=== PATIENT | female | born 1975 | race American Indian/Alaskan Native ===

== ENCOUNTER 2020-01-05 04:17 | Inpatient (IN) | payer OTHER ==
[2020-01-05] MEDS ORDERED: SODIUM CHLORIDE 0.9% 1000 ML 1,000 ML IV ONE ×4 (04:33→12:51)
[2020-01-05] MEDS ORDERED: LIP THERAPY VASELINE TP PRN (04:35)
[2020-01-05] MEDS ORDERED: MINERAL OIL/PETROLATUM, WHITE OPHTH OINT 3.5 GM OU PRN (04:35)
[2020-01-05] MEDS ORDERED: SODIUM CHLORIDE 0.9% 1000 ML IV SOLN IV ONE (04:36)
--- NOTE | 2020-01-05 04:38 | Emergency Department Report ---
ED CPR HPI - General Stated Complaint: CARDIAC ARREST Time Seen by Provider: 01/05/20 04:17 Source: EMS Mode of arrival: Stretcher Limitations: Altered Mental Status, Physical Limitation - History of Present Illness Initial Comments: Patient is a 44-year-old female that presents emergency room for cardiac arrest. Patient brought in by EMS. EMS report received. EMS states that the patient's last known well time was 1130. Patient was found unresponsive at home and the family called EMS. EMS states when they arrived patient was unresponsive, with no pulse and no respiratory effort. EMS states that they intubated patient with a Payam tube and gave the patient multiple rounds of epi. EMS states that the patient also went into V. fib and the patient was shocked and placed on amiodarone push and amiodarone drip. Patient had spontaneous return of circulation in the field. Upon arrival the patient is sinus bradycardia. MD Complaint: found unresponsive - Related Data Allergies Allergy/AdvReac Type Severity Reaction Status Date / Time Unable to Assess Allergy Verified 01/05/20 06:22 ED Review of Systems ROS: Stated complaint: CARDIAC ARREST Other details as noted in HPI Comment: Unobtainable due to pts medical conditions ED Past Medical Hx - Past Medical History Previous Medical History?: Yes Hx Hypertension: Yes Hx Diabetes: Yes - Surgical History Past Surgical History?: No - Family History Family history: no significant - Social History Smoking Status: Unknown if ever smoked Substance Use Type: None ED Physical Exam - General General appearance: other - Head Head exam: Present: atraumatic (Patient intubated with a Payam tube.), normocephalic - Eye Eye exam: Present: normal appearance - ENT ENT exam: Present: mucous membranes dry - Neck Neck exam: Present: normal inspection - Respiratory Respiratory exam: Present: decreased breath sounds (Patient intubated) - Cardiovascular Cardiovascular Exam: Present: regular rate, normal rhythm. Absent: systolic murmur, diastolic murmur, rubs, gallop - GI/Abdominal GI/Abdominal exam: Present: soft, normal bowel sounds. Absent: distended, tenderness, guarding - Rectal Rectal exam: Present: deferred - Extremities Exam Extremities exam: Present: normal inspection - Back Exam Back exam: Present: normal inspection - Neurological Exam Neurological exam: Present: altered - Skin Skin exam: Present: warm, dry, intact, normal color. Absent: rash ED Course Vital Signs 01/05/20 01/05/20 01/05/20 04:18 04:30 05:00 Pulse Rate 70 71 Respiratory 19 24 Rate Blood Pressure 112/80 125/65 85/17 Blood Pressure 85/17 [Right] O2 Sat by Pulse 97 Oximetry 01/05/20 01/05/20 01/05/20 05:08 05:16 06:16 Pulse Rate 85 67 82 Respiratory 24 24 Rate Blood Pressure 196/61 74/29 91/37 Blood Pressure [Right] O2 Sat by Pulse 100 100 100 Oximetry - Reevaluation(s) Reevaluation #1: Patient arrived via EMS. Patient has a pulse. Patient placed on a rn cardiac. Patient currently has a Payam tube in place. Patient came to removed and an ET tube placed. See procedure note. NG placed, Minor placed. 01/05/20 04:17 Reevaluation #2: Patient went into a cardiac arrest. 01/05/20 04:40 Patient had a spontaneous return of circulation after epi. Patient replaced on Levophed drip. See code note. 01/05/20 04:42 Reevaluation #3: Triple-lumen central line placed in the right femoral vein without difficulty. See procedure note. Patient's ET tube adjusted based on x-ray findings. X-ray findings recommend a extraction of 3 to 4 cm. A new x-ray taken. 01/05/20 05:27 Reevaluation #4: Patient noted to be in DKA and was placed on a DKA protocol. Patient will be given fluids and insulin drip. 01/05/20 06:10 - Consultations Consultation #1: Hospitalist consulted for admission. Hospitalist to admit patient. 01/05/20 06:50 - Central Line Placement Right Femoral Consent Obtained: emergent situation Time Out Performed: Yes Patient Placed on Monitor/Pulse Ox: Yes MD Prep: mask, gown, gloves Central Line Prep: Chlorhexidine scrub, sterile drapes applied Ultrasound Used for Placement: Yes Central Line Lumen Inserted: triple Bloods Obtained for Lab: No Central Line Position: good blood return, all ports aspirated, flus, sutured in place with 2-0 Dressing Applied: Tegaderm Patient Tolerated Procedure: well, no complications Complications: none Additional Comments: Right femoral line placed with a Seldinger technique without difficulties. - Intubation Time Out Performed: Yes Sedative: none Laryngoscope: fiberoptic video scope Size: 3 Assist Device Used: fiberoptic device ET Tube Size: 7.5 Tube Secured Depth (cm): 22 Tube Secured Location: teeth Tube Placement Confirmation: visualized tube passing t, equal breath sounds bilat, no breath sounds over epi, confirmation by capnometr Patient Tolerated Procedure: well, no complications Intubation Complications: none ED Medical Decision Making - Lab Data Result diagrams: 01/05/20 04:50 01/05/20 04:50 - EKG Data -: EKG Interpreted by Me EKG shows normal: sinus rhythm, axis, intervals, QRS complexes, ST-T waves Rate: normal - Radiology Data Radiology results: report reviewed CHEST 1 VIEW INDICATION / CLINICAL INFORMATION: cardiac arest. et tube. COMPARISON: None available. FINDINGS: SUPPORT DEVICES: Tip of ET tube is in the proximal right mainstem bronchus. Please withdraw 3-4 cm. HEART / MEDIASTINUM: No significant abnormality. LUNGS / PLEURA: There is suboptimal inspiration. Mild to moderate interstitial pulmonary edema is noted. More focal area of consolidation is present in the left lung base, retrocardiac region which could represent pneumonia or more for focal pulmonary edema. This area may be better evaluated after endotracheal tube reposition. No large pleural effusion. No pneumothorax. ADDITIONAL FINDINGS: No significant additional findings. IMPRESSION: 1. ET tube tip is within the right mainstem bronchus. Please withdraw 3-4 cm. 2. Mild to moderate interstitial pulmonary edema. 3. Focal area of consolidation is noted in the left lung base, concerning for possible pneumonia - Medical Decision Making Patient is a 44-year-old female that presents emergency room for a cardiac arrest. Patient last known well time 11:30 PM. Patient brought in by EMS. Patient had spontaneous return of circulation just prior to arrival. Report received from EMS. Patient had a Payam tube placed by EMS and the patient was extubated and reintubated with an standard ET tube. See procedure note. Patient went back into a cardiac arrest while in the ER but had a spontaneous return of circulation. Patient was then placed on a Levophed drip. Patient had a central line placed, see procedure note. Patient's chest x-ray shows a po ssible pneumonia. Patient's labs are consistent with DKA. Patient was placed on a DKA protocol to include insulin drip and fluids. Patient admitted to the ICU. Patient admitted to the hospitalist service. - Differential Diagnosis Cardiac arrest, DKA, overdose, [place] Critical Care Time: Yes Critical care time in (mins) excluding proc time.: 45 Critical care attestation.: If time is entered above; I have spent that time in minutes in the direct care of this critically ill patient, excluding procedure time. Critical Care Time: 45 minutes ED Disposition Clinical Impression: Cardiac arrest, Lactic acid acidosis DKA (diabetic ketoacidoses) Qualifiers: Diabetes mellitus type: other specified (including SD) Diabetes mellitus complication detail: with coma Qualified Code(s): E13.11 - Other specified diabetes mellitus with ketoacidosis with coma Pneumonia Qualifiers: Pneumonia type: due to unspecified organism Laterality: unspecified laterality Lung location: unspecified part of lung Qualified Code(s): J18.9 - Pneumonia, unspecified organism Disposition: 09 OP ADMIT IP TO THIS HOSP Is pt being admited?: Yes Does the pt Need Aspirin: No Condition: Critical Instructions: Bacterial Pneumonia (ED) Referrals: PRIMARY CARE, [Primary Care Provider] - 3-5 Days Time of Disposition: 06:52
[2020-01-05] MEDS: NORepinephrine/NS 4 MG-250 ML 4 MG/250 ML BAG IV SCH ×3 (04:40→12:16)
[2020-01-05 05:30] LABS: Hematocrit 29.7 % (30.3-42.9); Hemoglobin 9.4 gm/dl (10.1-14.3); Mean Corpuscular HGB Conc 32 % (30-34); Mean Corpuscular Volume 89 fl (79-97); Platelet Count 165 K/mm3 (140-440); Red Blood Count 3.35 M/mm3 (3.65-5.03); Red Cell Distribution Width 13.8 % (13.2-15.2)
[2020-01-05 05:34] LABS: Bilirubin,Urine NEG (Negative); Blood,Urine MOD (Negative); Color,Urine Yellow (Yellow); Hyaline Casts,Urine 4 /LPF; Mucus,Urine FEW /HPF; Urobilinogen,Urine < 2.0 mg/dL (<2.0)
--- NOTE | 2020-01-05 05:34 | XRay Report ---
CHEST 1 VIEW INDICATION / CLINICAL INFORMATION: cardiac arest. et tube. COMPARISON: None available. FINDINGS: SUPPORT DEVICES: Tip of ET tube is in the proximal right mainstem bronchus. Please withdraw 3-4 cm. HEART / MEDIASTINUM: No significant abnormality. LUNGS / PLEURA: There is suboptimal inspiration. Mild to moderate interstitial pulmonary edema is not ed. More focal area of consolidation is present in the left lung base, retrocardiac region which coul d represent pneumonia or more for focal pulmonary edema. This area may be better evaluated after endo tracheal tube reposition. No large pleural effusion. No pneumothorax. ADDITIONAL FINDINGS: No significant additional findings. IMPRESSION: 1. ET tube tip is within the right mainstem bronchus. Please withdraw 3-4 cm. 2. Mild to moderate interstitial pulmonary edema. 3. Focal area of consolidation is noted in the left lung base, concerning for possible pneumonia Signer Name: Tiffanie Fulton MD Signed: 01/05/2020 5:30 AM Workstation Name: [id number]
[2020-01-05 05:35] LABS: Alanine Aminotransferase 652 units/L (7-56); Albumin 2.9 g/dL (3.9-5); BUN/Creatinine Ratio 12; Blood Urea Nitrogen 14 mg/dL (7-17); Calcium 9.2 mg/dL (8.4-10.2); Hemolysis Index 36
[2020-01-05 05:43] LABS: Amphetamine Screen,Urine PRESUMPTIVE NEGATIVE; Benzodiazepines Screen,Urine PRESUMPTIVE NEGATIVE; Cannabinoid Screen,Urine PRESUMPTIVE NEGATIVE; Cocaine Screen,Urine PRESUMPTIVE NEGATIVE; Methadone Screen,Urine PRESUMPTIVE NEGATIVE; Opiate Screen,Urine PRESUMPTIVE NEGATIVE
[2020-01-05] MEDS ORDERED: DEXTROSE 50% IN WATER (25GM) 50 ML SYRINGE IV PRN (06:14)
--- NOTE | 2020-01-05 06:19 | XRay Report ---
CHEST 1 VIEW INDICATION / CLINICAL INFORMATION: post intubation. COMPARISON: 01/05/2020 at 0503 hours FINDINGS: SUPPORT DEVICES: Endotracheal tube has been withdrawn and now is in appropriate position. The tip is approximately 2.4 cm above the reginaldo. NG tube is present. The tip is not included on this radiograph but is at least within the midportion of the stomach. HEART / MEDIASTINUM: No significant abnormality. LUNGS / PLEURA: Mild to moderate interstitial pulmonary edema persists. No significant effusion. No p neumothorax. Previously noted area of focal consolidation in the left lung base appears somewhat impr nubia following ET tube reposition and may have represented atelectasis. ADDITIONAL FINDINGS: No significant additional findings. IMPRESSION: 1. Successful repositioning of endotracheal tube. 2. Persistent mild to moderate interstitial pulmonary edema. Signer Name: Tiffanie Fulton MD Signed: 01/05/2020 6:15 AM Workstation Name: [id number]
[2020-01-05] MEDS ORDERED: CEFEPIME/NS 2 GM/100 ML 2 GM/100 ML BAG IV ONE ×2 (06:48→07:46)
[2020-01-05 06:49] LABS: Total Cells Counted 100
[2020-01-05 06:50] LABS: Band Neutrophils # (Manual) 1.9 K/mm3; Basophils % (Manual) 0 % (0.0-1.8)
[2020-01-05 06:51] LABS: Anisocytosis RARE; Macrocytosis Rare; Platelet Estimate Consistent w Auto
[2020-01-05 07:11] LABS: BUN/Creatinine Ratio 12; Blood Urea Nitrogen 12 mg/dL (7-17); Calcium 6.5 mg/dL (8.4-10.2); Hemolysis Index 33
[2020-01-05] MEDS ORDERED: SODIUM CHLORIDE 0.9% 1000 ML 1,000 ML ONE (07:45)
[2020-01-05] MEDS: INSULIN REGULAR, HUMAN 100 UNITS in SODIUM CHLORIDE 0.9% 99 ML IV SCH ×2 (07:50→12:11)
[2020-01-05] MEDS ORDERED: SODIUM BICARB 8.4% 50 MEQ/50 ML SYRINGE IV ONE (08:00)
[2020-01-05] MEDS ORDERED: EPINEPHrine 1 MG/10 ML SYRINGE ONE (08:00)
[2020-01-05] MEDS ORDERED: NORepinephrine/NS 4 MG-250 ML 4 MG/250 ML BAG IV ONE (08:19)
[2020-01-05 08:20] LABS: ABG HCO3 11.3 mmol/L (20.0-26.0); ABG Methemoglobin 0.6 % (0.0-1.5); ABG Oxygen Saturation 99.6 % (95.0-99.0); ABG PH 7.329 pH Units (7.350-7.450)
[2020-01-05 08:23] LABS: ABG PO2 533.2 mm Hg (80.0-90.0)
[2020-01-05 08:46] LABS: BUN/Creatinine Ratio 14; Blood Urea Nitrogen 15 mg/dL (7-17); Calcium 8.7 mg/dL (8.4-10.2); Hemolysis Index 32
--- NOTE | 2020-01-05 09:03 | History and Physical Report ---
History of Present Illness Date of examination: 01/05/20 Date of admission: 01/05/20 06:51 Chief complaint: Cardiac Arrest History of present illness: Ms. Briseno is a 44-year-old obese -[place] female with prior history of diabetes mellitus on insulin, hypertension and hyperlipidemia presented to the hospital by EMS after found down by the family and after suffering from a cardiac arrest at home. Patient is currently intubated and comatose unable to p rovide any history. Most of the history has been obtained from the ER physician and staff and from the family. According to patient 's patient was last found to be well last night. Around 3 AM noticed that patient had fallen from the bed and she was unresponsive. EMS was called and they found patient has no pulse no respiratory effort and she was unresponsive. She was resuscitated according to ACLS protocol with return of spontaneous circulation. She went into V. fib and she was shocked, placed on amiodarone drip. On arrival in the ER patient had another round of cardiac arrest and again required resuscitation. Patient is intubated on mechanical ventilator and patient transferred to ICU for further evaluation and management. Interim a femoral central line has placed and patient also started on Levophed. In the ER patient also found to be in DKA and lactic acidosis, placed on insulin drip and IV fluid. Patient's chest x-ray shows a possible pneumonia. During my encounter patient is completely comatose with dilated pupil no cough or gag reflex. Patient also noticed to have coffee ground material from the OGT tube. Past medical history: Diabetes mellitus on insulin, hypertension hyperlipidemia Past surgical history: None Family history: Hypertension Social history: No history of smoking drinking or illicit drug abuse per family member documentation. Review of system: Unobtainable as patient is comatose Medications and Allergies Allergies Allergy/AdvReac Type Severity Reaction Status Date / Time Unable to Assess Allergy Verified 01/05/20 06:22 Active Meds: Active Medications Dextrose (D50w (25gm) Syringe) 50 ml IV Q30MIN PRN; Protocol PRN Reason: Hypoglycemia Hydrophilic Ointment (Vaseline Lip Therapy) 1 applic TP Q2HR PRN PRN Reason: Dry Lips Norepinephrine (Levophed Drip 4 Mg/Ns 250 Ml) 4 mg in 250 mls @ 7.5 mls/hr IV TITR ARIELLE; Protocol Last Admin: 01/05/20 08:38 Dose: 14 mcg/min, 52.5 mls/hr Documented by: Insulin Human Regular 100 (units/ Sodium Chloride) 100 mls @ 1 mls/hr IV TITR ARIELLE; Protocol Last Admin: 01/05/20 07:50 Dose: 8 units/hr, 8 mls/hr Documented by: Multi-Ingred Cream/Lotion/Oil/Oint (Artificial Tears Ophth Oint) 1 applic OU Q4HR PRN PRN Reason: Dry Eye(s) Exam - Constitutional Vitals: Temp Pulse Resp BP Pulse Ox 79 19 110/51 100 01/05/20 08:30 01/05/20 08:30 01/05/20 08:30 01/05/20 08:30 General appearance: Present: obese - EENT Eyes: Absent: EOM intact ENT: dentition normal, no oropharyngeal erythema - Neck Neck: Absent: enlarged thyroid, masses or JVD - Respiratory Respiratory: bilateral: diminished (on mechanical ventilation) - Cardiovascular Heart Sounds: Present: S1 & S2. Absent: rub, click - Extremities Extremities: No edema Extremity abnormal: other (faint pulse) Peripheral Pulses: within normal limits - Abdominal General gastrointestinal: Present: soft, distended, hypoactive bowel sounds - Integumentary Integumentary: Present: clear, dry, clammy - Musculoskeletal Musculoskeletal: other (No joint swelling) - Psychiatric Psychiatric: no appropriate mood/affect, no intact judgment & insight - Neurologic Neurologic: no CNII-XII intact, no moves all extremities HEART Score - HEART Score Troponin: Troponin T < 0.010 ng/mL (0.00-0.029) 01/05/20 04:50 Results - Labs CBC & Chem 7: 01/05/20 04:50 01/05/20 10:13 Labs: Abnormal lab results 01/05/20 01/05/20 01/05/20 Range/Units 04:50 04:50 04:50 RBC 3.35 L (3.65-5.03) M/mm3 Hgb 9.4 L (10.1-14.3) gm/dl Hct 29.7 L (30.3-42.9) % Seg Neuts % (Manual) 3.0 L (40.0-70.0) % Lymphocytes % (Manual) 68.0 H (13.4-35.0) % Seg Neutrophils # Man 0.2 L (1.8-7.7) K/mm3 Lymphocytes # (Manual) 5.6 H (1.2-5.4) K/mm3 APTT 58.3 H (24.2-36.6) Sec. ABG pH (7.350-7.450) pH Units ABG pO2 (80.0-90.0) mm Hg ABG HCO3 (20.0-26.0) mmol/L ABG O2 Saturation (95.0-99.0) % ABG Base Excess (-2.0-3.0) mmol/L ABG Hemoglobin (12.0-16.0) gm/dl Potassium (3.6-5.0) mmol/L Chloride 94.1 L (98-107) mmol/L Carbon Dioxide 18 L (22-30) mmol/L Glucose 532 H* (65-100) mg/dL POC Glucose (70-105) Lactic Acid (0.7-2.0) mmol/L Calcium (8.4-10.2) mg/dL Phosphorus (2.5-4.5) mg/dL AST 818 H (5-40) units/L ALT 652 H (7-56) units/L Alkaline Phosphatase 140 H (35-129) units/L Total Protein 5.8 L (6.3-8.2) g/dL Albumin 2.9 L (3.9-5) g/dL 01/05/20 01/05/20 01/05/20 Range/Units 04:50 05:50 06:31 RBC (3.65-5.03) M/mm3 Hgb (10.1-14.3) gm/dl Hct (30.3-42.9) % Seg Neuts % (Manual) (40.0-70.0) % Lymphocytes % (Manual) (13.4-35.0) % Seg Neutrophils # Man (1.8-7.7) K/mm3 Lymphocytes # (Manual) (1.2-5.4) K/mm3 APTT (24.2-36.6) Sec. ABG pH (7.350-7.450) pH Units ABG pO2 (80.0-90.0) mm Hg ABG HCO3 (20.0-26.0) mmol/L ABG O2 Saturation (95.0-99.0) % ABG Base Excess (-2.0-3.0) mmol/L ABG Hemoglobin (12.0-16.0) gm/dl Potassium (3.6-5.0) mmol/L Chloride (98-107) mmol/L Carbon Dioxide (22-30) mmol/L Glucose (65-100) mg/dL POC Glucose (70-105) Lactic Acid 18.40 H* 15.10 H* (0.7-2.0) mmol/L Calcium (8.4-10.2) mg/dL Phosphorus 6.00 H (2.5-4.5) mg/dL AST (5-40) units/L ALT (7-56) units/L Alkaline Phosphatase (35-129) units/L Total Protein (6.3-8.2) g/dL Albumin (3.9-5) g/dL 01/05/20 01/05/20 01/05/20 Range/Units 06:31 06:33 07:54 RBC (3.65-5.03) M/mm3 Hgb (10.1-14.3) gm/dl Hct (30.3-42.9) % Seg Neuts % (Manual) (40.0-70.0) % Lymphocytes % (Manual) (13.4-35.0) % Seg Neutrophils # Man (1.8-7.7) K/mm3 Lymphocytes # (Manual) (1.2-5.4) K/mm3 APTT (24.2-36.6) Sec. ABG pH (7.350-7.450) pH Units ABG pO2 (80.0-90.0) mm Hg ABG HCO3 (20.0-26.0) mmol/L ABG O2 Saturation (95.0-99.0) % ABG Base Excess (-2.0-3.0) mmol/L ABG Hemoglobin (12.0-16.0) gm/dl Potassium 5.3 H D (3.6-5.0) mmol/L Chloride 107.5 H (98-107) mmol/L Carbon Dioxide 13 L (22-30) mmol/L Glucose 521 H* (65-100) mg/dL POC Glucose 464 H (70-105) Lactic Acid 11.90 H* (0.7-2.0) mmol/L Calcium 6.5 L D (8.4-10.2) mg/dL Phosphorus (2.5-4.5) mg/dL AST (5-40) units/L ALT (7-56) units/L Alkaline Phosphatase (35-129) units/L Total Protein (6.3-8.2) g/dL Albumin (3.9-5) g/dL 01/05/20 01/05/20 01/05/20 Range/Units 08:01 08:01 08:10 RBC (3.65-5.03) M/mm3 Hgb (10.1-14.3) gm/dl Hct (30.3-42.9) % Seg Neuts % (Manual) (40.0-70.0) % Lymphocytes % (Manual) (13.4-35.0) % Seg Neutrophils # Man (1.8-7.7) K/mm3 Lymphocytes # (Manual) (1.2-5.4) K/mm3 APTT (24.2-36.6) Sec. ABG pH 7.329 L (7.350-7.450) pH Units ABG pO2 533.2 H (80.0-90.0) mm Hg ABG HCO3 11.3 L (20.0-26.0) mmol/L ABG O2 Saturation 99.6 H (95.0-99.0) % ABG Base Excess -13.0 L (-2.0-3.0) mmol/L ABG Hemoglobin 10.1 L (12.0-16.0) gm/dl Potassium 5.3 H (3.6-5.0) mmol/L Chloride (98-107) mmol/L Carbon Dioxide 14 L (22-30) mmol/L Glucose 507 H* (65-100) mg/dL POC Glucose (70-105) Lactic Acid 12.90 H* (0.7-2.0) mmol/L Calcium (8.4-10.2) mg/dL Phosphorus (2.5-4.5) mg/dL AST (5-40) units/L ALT (7-56) units/L Alkaline Phosphatase (35-129) units/L Total Protein (6.3-8.2) g/dL Albumin (3.9-5) g/dL Assessment and Plan Acute encephalopathy -Metabolic from DKA and sepsis. Cannot rule out severe anoxic brain injury as patient suffered from to cardiac arrest. Patient currently with dilated pupil without any cough or gag reflex -We will obtain CT head and will request for neuro consult Acute hypoxemic respiratory failure, patient on mechanical ventilator support -Critical care consulted, continue nebs and wean off from vent as tolerated -Follow ABG Status post cardiac arrest x2 with a return of spontaneous circulation -We will obtain 2D echo, continue to follow cardiac markers and EKG Severe septic shock -Continue Levophed and IV fluid hydration -Follow 2D echo result Bilateral pulmonary infiltrates presumably pneumonia with sepsis -Chest x-ray also suggestive for focal left lung consolidation -Start on empiric antibiotics, will also rule out COVID-19 infection Diabetic ketoacidosis -Placed on DKA protocol, continue insulin drip, normal saline -Follow blood glucose every 1 hour Metabolic acidosis with elevated lactic -Likely due to DKA and cardiac arrest -Continue IV fluid and follow BMP MARIAMA, likely due to dehydration and DKA -Serum creatinine now 1.3, continue IV fluid, follow BMP Elevated serum transaminases, likely due to cardiac arrest and profound hypote nsion -Continue to monitor LFT Coffee-ground emesis/secretion from OGT tube -We will start on Protonix IV, will monitor H&H -Plan to obtain CT abdomen pelvis when patient is stable enough to transport to CT scan Normocytic anemia, continue to monitor H&H for now DVT prophylaxis, will hold for now until rule out GI bleed The high probability of a clinically significant, sudden or life threatening deterioration of the [Cardio, respiratory, [employer], GI] system(s) required my full and direct attention, intervention and personal management. The aggregate critical care time was [42] minutes. This time is in addition to time spent performing reported procedures but includes the following: [x] Data Review and interpretation [x] Patient assessment and monitoring of vital signs [x] Documentation [x] Medication orders and management
[2020-01-05] MEDS ORDERED: SODIUM CHLORIDE 0.9% 1000 ML IV SOLN ONE (10:00)
--- NOTE | 2020-01-05 10:47 | Consultation ---
History of Present Illness Consult date: 01/05/20 Requesting physician: GERARDO FLOYD Reason for consult: other (S/P Cardiac arrest with ROSC; PUI COVID-19; DKA) History of present illness: PCCM CONSULT NOTE (Full dictation # [id number]) Please see dictated notes for full details Medications and Allergies Allergies Allergy/AdvReac Type Severity Reaction Status Date / Time Unable to Assess Allergy Verified 01/05/20 06:22 Active Meds: Active Medications Dextrose (D50w (25gm) Syringe) 50 ml IV Q30MIN PRN; Protocol PRN Reason: Hypoglycemia Hydrophilic Ointment (Vaseline Lip Therapy) 1 applic TP Q2HR PRN PRN Reason: Dry Lips Norepinephrine (Levophed Drip 4 Mg/Ns 250 Ml) 4 mg in 250 mls @ 7.5 mls/hr IV TITR ARIELLE; Protocol Last Admin: 01/05/20 08:38 Dose: 14 mcg/min, 52.5 mls/hr Documented by: Insulin Human Regular 100 (units/ Sodium Chloride) 100 mls @ 1 mls/hr IV TITR ARIELLE; Protocol Last Admin: 01/05/20 07:50 Dose: 8 units/hr, 8 mls/hr Documented by: Multi-Ingred Cream/Lotion/Oil/Oint (Artificial Tears Ophth Oint) 1 applic OU Q4HR PRN PRN Reason: Dry Eye(s) Physical Examination Vital signs: Vital Signs BP 112/80 01/05/20 04:18 Results - Laboratory Findings CBC and BMP: 01/05/20 04:50 01/05/20 10:13 ABG ABG pH 7.329 pH Units (7.350-7.450) L 01/05/20 08:10 ABG pCO2 22.0 mm Hg 01/05/20 08:10 ABG pO2 533.2 mm Hg (80.0-90.0) H 01/05/20 08:10 ABG O2 Saturation 99.6 % (95.0-99.0) H 01/05/20 08:10 Abnormal lab findings: Abnormal Labs 01/05/20 01/05/20 01/05/20 04:50 04:50 04:50 RBC 3.35 L Hgb 9.4 L Hct 29.7 L Seg Neuts % (Manual) 3.0 L Lymphocytes % (Manual) 68.0 H Seg Neutrophils # Man 0.2 L Lymphocytes # (Manual) 5.6 H APTT 58.3 H ABG pH ABG pO2 ABG HCO3 ABG O2 Saturation ABG Base Excess ABG Hemoglobin Potassium Chloride 94.1 L Carbon Dioxide 18 L Glucose 532 H* POC Glucose Lactic Acid Calcium Phosphorus AST 818 H ALT 652 H Alkaline Phosphatase 140 H Total Protein 5.8 L Albumin 2.9 L 01/05/20 01/05/20 01/05/20 04:50 05:50 06:31 RBC Hgb Hct Seg Neuts % (Manual) Lymphocytes % (Manual) Seg Neutrophils # Man Lymphocytes # (Manual) APTT ABG pH ABG pO2 ABG HCO3 ABG O2 Saturation ABG Base Excess ABG Hemoglobin Potassium Chloride Carbon Dioxide Glucose POC Glucose Lactic Acid 18.40 H* 15.10 H* Calcium Phosphorus 6.00 H AST ALT Alkaline Phosphatase Total Protein Albumin 01/05/20 01/05/20 01/05/20 06:31 06:33 07:54 RBC Hgb Hct Seg Neuts % (Manual) Lymphocytes % (Manual) Seg Neutrophils # Man Lymphocytes # (Manual) APTT ABG pH ABG pO2 ABG HCO3 ABG O2 Saturation ABG Base Excess ABG Hemoglobin Potassium 5.3 H D Chloride 107.5 H Carbon Dioxide 13 L Glucose 521 H* POC Glucose 464 H Lactic Acid 11.90 H* Calcium 6.5 L D Phosphorus AST ALT Alkaline Phosphatase Total Protein Albumin 01/05/20 01/05/20 01/05/20 08:01 08:01 08:10 RBC Hgb Hct Seg Neuts % (Manual) Lymphocytes % (Manual) Seg Neutrophils # Man Lymphocytes # (Manual) APTT ABG pH 7.329 L ABG pO2 533.2 H ABG HCO3 11.3 L ABG O2 Saturation 99.6 H ABG Base Excess -13.0 L ABG Hemoglobin 10.1 L Potassium 5.3 H Chloride Carbon Dioxide 14 L Glucose 507 H* POC Glucose Lactic Acid 12.90 H* Calcium Phosphorus AST ALT Alkaline Phosphatase Total Protein Albumin
[2020-01-05 10:52] LABS: Calcium 7.6 mg/dL (8.4-10.2)
[2020-01-05] MEDS ORDERED: VANCOMYCIN/NS 1 GM/250 ML 1 GM/250 ML BAG IV SCH (11:00)
[2020-01-05] MEDS ORDERED: HEPARIN 5,000 UNIT/1 ML VIAL SUB-Q SCH ×2 (11:00→11:15)
[2020-01-05] MEDS ORDERED: FAMOTIDINE 20 MG/2 ML INJ IV SCH (11:00)
[2020-01-05] MEDS ORDERED: fentaNYL 100 MCG/2 ML INJ IV PRN (11:03)
[2020-01-05] MEDS ORDERED: SODIUM CHLORIDE 0.9% 1000 ML 1,000 ML IV SCH (11:30)
[2020-01-05] MEDS ORDERED: VANCOMYCIN 1,500 MG in SODIUM CHLORIDE 0.9% 500 ML 500 ML IV SCH (11:30)
[2020-01-05] MEDS ORDERED: fentaNYL DRIP Premix 2,000 MCG/100 ML BAG IV SCH (12:00)
[2020-01-05] MEDS ORDERED: FAMOTIDINE 20 MG TAB PO SCH (12:00)
[2020-01-05 12:56] LABS: Calcium 9.1 mg/dL (8.4-10.2)
[2020-01-05] MEDS ORDERED: VASOPRESSIN 20 UNIT in SODIUM CHLORIDE 0.9% 100 ML IV SCH (13:00)
[2020-01-05 13:09] VITALS: BP 68/40
--- NOTE | 2020-01-05 13:34 | Consultation ---
PULMONARY AND CRITICAL CARE CONSULTATION CONSULTING PHYSICIAN: Dr. Yuen. REASON FOR CONSULTATION: Cardiac arrest with return of spontaneous circulation, bilateral pneumonia, acute hypoxemic respiratory failure, on the mechanical ventilator. CHIEF COMPLAINT AND HISTORY OF PRESENT ILLNESS: As follows: I should premise this note by stating that the patient in concern is unable to give me a history. History is based on review of medical records as well as discussions with other healthcare personnel. She was found down as far as we know, brought in by EMS to the ER. Last known well time was about almost 10 hours before she was seen. She was found unresponsive at home by her family. Emergency medical services when they arrived, she was unresponsive, no pulse, no respiratory effort. She received resuscitation with return of spontaneous circulation. She went into VFib. She was shocked, placed on amiodarone drip. On arrival in the ER, it looks like she had another round of cardiac arrest and again required resuscitation. She was intubated on mechanical ventilator and the patient was then transferred upstairs. She did have a femoral central line placed. When I stopped by to see her, she was resting in bed, nonresponsive. The patient was riding the set rate on the mechanical ventilator. I do not have any history of vomiting or overt aspiration. She has had no prior hospitalizations in this hospital. The above is as much of the history of presentation as I know. I should mention that she was also found to be in diabetic ketoacidosis and was started on an insulin drip. PAST MEDICAL HISTORY: She is obese, otherwise unknown. PAST SURGICAL HISTORY: Unknown. MEDICATIONS: Medications that she was on at the time I stopped by to see her, according to the medication administration record included the following: Cefepime 1 gram IV q. 8 hours, insulin drip was going at 11 units per hour, Levophed drip was going at 14 mcg per minute and she had received vancomycin 1 gram IV scheduled q. 12 hours. ALLERGIES: Unknown. DIET: Obese lady, acute weight loss or gain history is unknown. FAMILY AND SOCIAL HISTORY: Lived in the community. Alcohol, tobacco, or illicit drug use or abuse history is unknown. Family history is also otherwise unknown. REVIEW OF SYSTEMS: Unobtainable secondary to the patient's medical and mental condition. Since she has been here, no gross hematochezia or melena, no gross hematuria, no hematemesis, no bloody tracheal secretions, no witnessed seizures. PHYSICAL EXAMINATION: VITAL SIGNS: On examination at presentation, vital signs, no temperature was recorded. Her pulse was 70, respiratory rate 19, blood pressure as low as 85/17 and O2 sats 97% that was on mechanical ventilator. When she came out, she was on assist control, tidal volumes 450, rate I believe 25 and PEEP of 6. GENERAL: She is a middle-aged obese lady, normocephalic, atraumatic, on the mechanical ventilator without significant patient ventilator dyssynchrony. HEAD, EYES, EARS, NOSE AND THROAT: She is anicteric. No conjunctival erythema. Oropharynx was moist. ET tube was taped around 23 cm at the lips. No gross jugular venous distention, no thyromegaly. NECK: Grossly, there were no palpable lymph nodes in the supraclavicular or submandibular lymph node chains. LUNGS: Auscultation of both lung love significant for diminished bilateral breath sounds, faint inspiratory rales in the bases. No wheezing. HEART: Heart sounds 1 and 2 are heard, regular rhythm at the time of my evaluation without overt rubs or murmurs. ABDOMEN: Soft, full, protuberant. Bowel sounds are positive, nontender, no palpable hepatosplenomegaly. EXTREMITIES: Without overt digital clubbing, no cyanosis, no pedal edema. Pedal pulses are 2+ bilaterally. NEUROLOGIC: Pupils were equal. There were about 7 mm and sluggishly reactive to light. Extraocular muscle movements could not be assessed. She did not have spontaneous movements to extremities, but again is status post cardiac arrest. SKIN: Normal turgor in the areas examined without overt cellulitis or rash. PSYCHIATRIC: Mood and affect could not be assessed. LABORATORY DATA: From my review are as follows: White cell count 8200, hemoglobin 9.4, hematocrit 29.7, platelet count 165, 23% band forms on the manual differential. Arterial blood gas showed a pH of 7.33, pCO2 of 22, pO2 of 533 that was on 100% FiO2 at that time. Serum sodium 143, potassium 5.3, chloride 108, bicarbonate 13, BUN was 12, creatinine was 1.0, glucose was 521. Lactic acid level was 11.9, magnesium 1.7, AST was elevated at 818, ALT 652. Urinalysis is negative for nitrites and leukocyte esterase. Urine drug screen was presumptive negative. Two sets of blood cultures, no growth to date. Chest x-ray was done. I have reviewed the chest x-ray. Endotracheal tube tip is at the lower level of the clavicular heads. She has bilateral infiltrates, gross cardiomegaly, no gross pneumothorax, no gross bony fracture. The film is rotated to the left and then an element of hypoventilation. ASSESSMENT: 1. Acute hypoxemic respiratory failure, on mechanical ventilatory support. 2. Cardiac arrest with return of spontaneous circulation. 3. Bilateral pulmonary infiltrates, presumably pneumonia, community acquired. 4. Person under investigation for COVID-19 infection. 5. Diabetic ketoacidosis. 6. Obesity. 7. Metabolic acidosis. 8. Lactic acidosis. 9. Acute kidney injury, serum creatinine now 1.3. 10. Elevated serum transaminases. 11. Acute encephalopathy. 12. Oropharyngeal dysphagia. PLAN: I will put her in airborne and contact precautions. Stat coronavirus PCR test will be ordered. In the meantime, she will be volume resuscitated. She also will be placed on the diabetic ketoacidosis protocol and we will continue the IV insulin therapy for that. Ventilator-associated pneumonia bundle has been introduced. Oxygen will be weaned to keep sats greater than or equal to about 92%. Aspiration precautions will be maintained. Enteral nutrition will be the feeding modality of choice. She will be placed on GI and DVT prophylaxis. I will get stat serum markers, D-dimer, ferritin, LDH, CRP, procalcitonin. If D-dimer is significantly elevated, I will start empiric full anticoagulation. We will give her some time to see if there is any improvement in mental status. Neuroimaging and Neurology evaluation decision will be reevaluated later and Neurology consultation, I will leave up to the attending physician. If she continues to be nonresponsive, we will send her down for a CT of the brain once she has been stabilized, she is a little bit unstable at this time. Vasopressors will be weaned to keep mean arterial blood pressure greater than or equal to about 65 mmHg. Electrolytes will be followed and corrected as necessary. I will put a Minor catheter in this critically ill lady with rising creatinine levels. Glycemic control will be targeted for blood glucose of 140-180 mg/dL while critically ill. Again, she will be placed on GI and VTE prophylaxis. Flu and pneumonia vaccination will be per protocol. Cardiology workup will be per the attending physician in terms of an acute coronary syndrome workup and consultation. Thank you very much for the consult. We will follow along and make further recommendations as picture progresses/becomes clearer. She is critically ill on life-sustaining interventions including mechanical ventilatory support and vasopressors at very high risk of from cardiopulmonary system resuscitation. Temperature has been checked now. She will be warmed as necessary. At this time, I spent about 35-40 minutes of critical care time without overlap excluding any procedural time that may be necessary. JOB# [id number] CECI/DARYL
[2020-01-05] MEDS ORDERED: SIMPLE SYRUP 15 ML FEEDTUBE PRN ×2 (13:47)
[2020-01-05] MEDS ORDERED: SODIUM BICARBONATE 325 MG TAB FEEDTUBE PRN (13:47)
[2020-01-05] MEDS ORDERED: LIPASE 10,500/PROTEASE 25,000/AMYLASE 43,750 (UNITS) DR CAP FEEDTUBE PRN (13:47)
[2020-01-05] MEDS ORDERED: CEFEPIME/NS 1 GM/100 ML 1 GM/100 ML BAG IV SCH (14:00)
--- NOTE | 2020-01-05 14:24 | Event Note ---
Date: 01/05/20 Patient pronounced 14:12 called and sister twice and updated I offered my condolences Cause of : Cardiopulmonary arrest from severe DKA, severe/profound septic shock
[2020-01-05] MEDS ORDERED: PANTOPRAZOLE 40 MG INJ IV SCH (22:00)
--- NOTE | 2020-01-06 12:34 | Death Summary ---
Summary - Providers Consults: 01/05/20 11:03 Consult to Dietitian/Nutrition [CONS] Routine Physician Instructions: Reason For Exam: Reason for Consult: Evaluate nutritional intake 01/05/20 11:07 Consult to Dietitian/Nutrition [CONS] Routine Physician Instructions: Reason For Exam: Reason for Consult: Write/Manage Tube Feeding Attending: GERARDO FLOYD - summary Date of admission: 01/05/20 06:51 Date of : 01/05/20 Significant findings: Cause of : Cardiopulmonary arrest from severe DKA, severe/profound septic shock, b/l PNA Patient pronounced 14:[address] Del Toro
== END 2020-01-05 14:12 | DRG 871 ==
LOC: ED 04:17 → CC1 06:51
PROVIDERS: ADMIT Internal Medicine Geriatric Medicine; ATTEND Internal Medicine
PROC: 4A033R1 Measurement of Arterial Saturation, Peripheral, Percutaneous Approach (ICD-10-PCS; principal; 2020-01-05)
PROC: 5A1935Z Respiratory Ventilation, Less than 24 Consecutive Hours (ICD-10-PCS; 2020-01-05)
PROC: 0BH17EZ Insertion of Endotracheal Airway into Trachea, Via Natural or Artificial Opening (ICD-10-PCS; 2020-01-05)
PROC: 06HY33Z Insertion of Infusion Device into Lower Vein, Percutaneous Approach (ICD-10-PCS; 2020-01-05)
PROC: B54BZZA Ultrasonography of Right Lower Extremity Veins, Guidance (ICD-10-PCS; 2020-01-05)
DX: A41.9 Sepsis, unspecified organism (principal); E11.10 Type 2 diabetes mellitus with ketoacidosis without coma; R65.21 Severe sepsis with septic shock; J18.9 Pneumonia, unspecified organism; G93.41 Metabolic encephalopathy; J96.01 Acute respiratory failure with hypoxia; I10 Essential (primary) hypertension; D64.9 Anemia, unspecified; E66.9 Obesity, unspecified; R13.12 Dysphagia, oropharyngeal phase; I46.9 Cardiac arrest, cause unspecified; Z79.4 Long term (current) use of insulin; Z82.49 Family history of ischemic heart disease and other diseases of the circulatory system
CPT/HCPCS: 31500; 36415; 36600; 71045; 80048; 80053; 80307; 81001; 82140; 82728; 82803; 82962; 83615; 83735; 84100; 84145; 84484; 85007; 85025; 85730; 86140; 87040; 87086; 93005; 94002; G0378; J0171; J0692; J1644; J1815; J3370; J7030; J7040